=== PATIENT | female | born 1985 | race Caucasian/White ===

== ENCOUNTER → 2019-07-22 | Outpatient (CLI) | payer OTHER ==
[2019-07-24 15:07] LABS: HPV 16 Negative (Negative); HPV 18 Negative (Negative); HPV OTHER HR TYPES Positive (Negative)
== END | disposition home or self-care (01) ==
LOC: LAB SHORT 17:49 → LAB 17:49
PROVIDERS: Family Medicine
DX: Z12.4 Encounter for screening for malignant neoplasm of cervix (principal)
CPT/HCPCS: 87624; 87625; G0123

== ENCOUNTER → 2019-10-03 | Outpatient (CLI) | payer OTHER ==
[2019-10-08 02:09] LABS: NEISSERIA GONORRHOEAE, NAA Negative (Negative)
[2019-10-08 11:15] LABS: CHLAMYDIA TRACHOMATIS, NAA Positive (Negative)
== END | disposition home or self-care (01) ==
LOC: LAB 15:20 → LAB SHORT 15:20
PROVIDERS: Registered Nurse
DX: Z20.2 Contact with and (suspected) exposure to infections with a predominantly sexual mode of transmission (principal)
CPT/HCPCS: 87491; 87591

== ENCOUNTER 2020-05-24 15:11 | Emergency (ER) | payer OTHER ==
[~2020-05-24] VITALS: Ht 170.2 cm; Wt 55.8 kg
[2020-05-24] MEDS ORDERED: ERYT.5TO RIGHTEYE (16:58)
== END 2020-05-24 17:17 | disposition home or self-care (01) ==
LOC: ER 15:11
DX: T15.01XA Foreign body in cornea, right eye, initial encounter (principal); W45.8XXA Other foreign body or object entering through skin, initial encounter
CPT/HCPCS: 65220; 99283-25

== ENCOUNTER → 2022-09-08 | Outpatient (CLI) | payer OTHER ==
[~2022-09-08] MED LIST: CEFD300 PO; ERYT.5TO RIGHTEYE; IBUP600 PO
== END | disposition home or self-care (01) ==
LOC: LAB SHORT 09:23 → LAB 09:23
DX: R30.0 Dysuria (principal)
CPT/HCPCS: 87077; 87086; 87186